=== PATIENT | male | born 1990 | race Caucasian/White ===

== ENCOUNTER 2023-05-26 04:00 | Day surgery (SDC) | payer OTHER ==
[2023-05-26] VITALS (219 sets, daily range): BP systolic 80–130; BP diastolic 40–95
[~2023-05-26] VITALS: Ht 170.2 cm; Wt 59.4 kg
[2023-05-26 08:31] LABS: ALBUMIN 3.9 g/dL (3.2-5.0); ALKALINE PHOSPHATASE 33 u/l (38-126); ANION GAP 10 (6-22 (CALC)); BILIRUBIN, TOTAL 0.6 mg/dL (0.2-1.3); BUN 20 mg/dL (9-20); BUN/CREATININE RATIO 23 (12-20 (CALC)); CARBON DIOXIDE 28 mmol/l (22-30); CHLORIDE 104 mmol/l (95-108); CREATININE 0.9 mg/dL (0.7-1.3); GFR FOR AFR.AMER. > 60 ML/MIN (>=60 (CALC)); GFR OTHER RACES > 60 ML/MIN (>=60 (CALC)); POTASSIUM 4.2 mmol/l (3.5-5.1); SGOT/AST 27 u/l (17-59); SODIUM 138 mmol/l (137-146); TOTAL PROTEIN 6.6 g/dL (6.3-8.2)
[2023-05-26 08:32] LABS: BASO% 1.1 % (0-3); EOS% 8.7 % (0-8); HEMOGLOBIN 12.5 g/dl (14.0-18.0); IMMATURE GRANULOCYTES 0.4 % (0.0-5.0); LYMPH% 32.8 % (15-41); MEAN CELL VOLUME 91.3 fL CALC (80.0-100.0); MEAN CORPUSCULAR HGB CONC 32.9 g/dL CAL (32.0-36.0); MONO% 7.7 % (2-13); NEUT# 2.32 thou/uL (1.82-7.42); NEUT% 49.3 % (42-76); RED BLOOD COUNT 4.16 mill/uL (4.70-6.10); RED CELL DISTRI WIDTH 12.6 % (11.5-15.5)
[2023-05-26] MEDS ORDERED: KLONOPIN2 MG PO (15:08)
[2023-05-26] MEDS ORDERED: NALTREXONE50 MG PO (15:08)
[2023-05-26] MEDS ORDERED: CLONIDINE0.1 MG PO (15:08)
[2023-05-27 02:11] VITALS: BP 113/66
[2023-05-27 04:01] VITALS: BP 119/82
[2023-05-27 05:19] LABS: BASO% 0.1 % (0-3); HEMATOCRIT 37.4 % (39.0-50.0); HEMOGLOBIN 12.5 g/dl (14.0-18.0); IMMATURE GRANULOCYTES 0.1 % (0.0-5.0); LYMPH% 11.1 % (15-41); MEAN CELL VOLUME 89.7 fL CALC (80.0-100.0); MEAN CORPUSCULAR HGB CONC 33.4 g/dL CAL (32.0-36.0); MONO% 0.8 % (2-13); NEUT# 6.56 thou/uL (1.82-7.42); NEUT% 87.9 % (42-76); RED BLOOD COUNT 4.17 mill/uL (4.70-6.10); RED CELL DISTRI WIDTH 12.6 % (11.5-15.5)
[2023-05-27 05:39] LABS: ALKALINE PHOSPHATASE 44 u/l (38-126); ANION GAP 13 (6-22 (CALC)); BUN 14 mg/dL (9-20); BUN/CREATININE RATIO 18 (12-20 (CALC)); CARBON DIOXIDE 24 mmol/l (22-30); CHLORIDE 108 mmol/l (95-108); CREATININE 0.8 mg/dL (0.7-1.3); GFR FOR AFR.AMER. > 60 ML/MIN (>=60 (CALC)); GFR OTHER RACES > 60 ML/MIN (>=60 (CALC)); MAGNESIUM 2.1 mg/dL (1.6-2.3); SGOT/AST 33 u/l (17-59); SODIUM 140 mmol/l (137-146); TOTAL PROTEIN 6.7 g/dL (6.3-8.2)
[2023-05-27 11:09] VITALS: BP 104/46
== END 2023-05-27 15:59 | disposition home or self-care (01) | DRG 897 ==
LOC: MS2 04:00 → ANR 04:00
PROVIDERS: ATTEND Anesthesiology Critical Care Medicine
DX: F11.20 Opioid dependence, uncomplicated (principal)
CPT/HCPCS: J0131; J2060; J2354; J3475